=== PATIENT | male | born 1960 | race Caucasian/White ===

== ENCOUNTER 2023-06-20 03:52 | Inpatient (IN) | payer MEDICAID ==
[2023-06-20] VITALS (8 sets, daily range): BP systolic 128–141; BP diastolic 76–90; PULSE 72–82; RESP 16–27; TEMP 98.2; O2SAT 89–99
[~2023-06-20] VITALS: Ht 170.2 cm; Wt 63.5 kg
[~2023-06-20 03:52] MED LIST: ALBU3SOL83 IH; APIX5TAB PO; METH4TAB1 PO
[2023-06-20] MEDS: ALBUTEROL 0.083% 2.5 MG/3 ML NEBU INH ONE ×2 (04:26→06:22)
[2023-06-20] MEDS: IPRATROPIUM 0.02% 0.5 MG/2.5 ML NEBU INH ONE ×2 (04:26→06:21)
[2023-06-20] MEDS: methylPREDNISolone SS 125 MG/2 ML VIAL IVP ONE (05:03)
[2023-06-20] MEDS ORDERED: cefTRIAXone 1,000 MG VIAL ONE (07:03)
[2023-06-20 07:47] LABS: BASOPHILS % (AUTO) 0.2 % (0.0-2.0); EOSINOPHILS % (AUTO) 0.2 % (0.0-4.0); HEMATOCRIT 44.8 % (36-52); HEMOGLOBIN 14.4 g/dL (12.0-18.0); LYMPHOCYTES # (AUTO) 0.5 K/uL (2.0-11.5); LYMPHOCYTES % (AUTO) 6.9 % (20.5-51.1); MEAN CORPUSCULAR HEMOGLOBIN 30 pg (27-31); MEAN CORPUSCULAR HGB CONC 32 g/dL (33-37); MEAN CORPUSCULAR VOLUME 94.2 fL (80-94); MONOCYTES # (AUTO) 0.1 K/uL (0.8-1.0); MONOCYTES % (AUTO) 1.5 % (1.7-9.3); NEUTROPHILS # (AUTO) 6.5 K/uL (1.8-7.7); NEUTROPHILS % (AUTO) 91.2 % (42.2-75.2); PLATELET COUNT (AUTO) 192 K/uL (140-450); RED BLOOD CELL COUNT(AUTO) 4.76 MIL/uL (4.20-6.10); RED CELL DISTRIBUTION WIDTH 14.2 % (11.6-13.7); WHITE BLOOD COUNT (AUTO) 7.2 K/uL (4.8-10.8)
[2023-06-20 07:59] LABS: CALCIUM 9.5 mg/dL (8.5-10.1); CREATININE 0.6 mg/dL (0.6-1.3); POTASSIUM 3.9 mmol/L (3.5-5.1)
[2023-06-20 08:10] LABS: ANION GAP 5.1 (8-16)
[2023-06-20 08:12] LABS: CARBON DIOXIDE 46.8 mmol/L (21-32)
[2023-06-20] MEDS ORDERED: ACETAMINOPHEN 325 MG TAB PO PRN (09:50)
[2023-06-20] MEDS ORDERED: DOCUSATE SODIUM 100 MG GELCAP PO PRN (09:50)
[2023-06-20] MEDS ORDERED: MORPHINE SULFATE 2 MG/ML SYR IVP PRN (09:50)
[2023-06-20] MEDS ORDERED: ONDANSETRON 4 MG/2 ML VIAL IM/IVP PRN (09:50)
[2023-06-20 10:19] LABS: MAGNESIUM 1.5 mg/dL (1.8-2.4); PHOSPHORUS 3.4 mg/dL (2.5-4.9)
[2023-06-20] MEDS: ALBUTEROL SULFATE/IPRATROPIU 3 ML SOL IH SCH ×2 (11:05→15:53)
[2023-06-20] MEDS: NACL 0.9% 1,000 ML IV SCH (11:23)
[2023-06-20] MEDS ORDERED: methylPREDNISolone SS 40 MG in WATER STERILE 1 ML IV SCH (13:00)
[2023-06-20] MEDS: methylPREDNISolone SS 40 MG/ML VIAL IVP SCH (14:51)
[2023-06-20 17:49] LABS: BLOOD GAS PH 7.337 (7.35-7.45)
[2023-06-20 17:50] LABS: BLOOD GAS BASE EXCESS 9.7 mmol/L (-2.0-2.0); BLOOD GAS HCO3 38.5 mmol/L (22-26); BLOOD GAS PCO2 73.6 mmHg (35-45)
[2023-06-20 17:51] LABS: BLOOD GAS O2 SAT% 78.5 % (92.0-98.5)
[2023-06-20] MEDS ORDERED: METF-352 PO (19:41)
[2023-06-20] MEDS ORDERED: PANT40EC PO (19:41)
[2023-06-20] MEDS ORDERED: PRON INH (19:41)
[2023-06-20] MEDS ORDERED: ROFL250T3 PO (19:41)
[2023-06-20] MEDS ORDERED: MELA3TER PO (19:41)
[2023-06-20] MEDS ORDERED: FERR-20 PO (19:41)
[2023-06-20] MEDS ORDERED: ATOR10TA PO (19:41)
[2023-06-20 20:42] LABS: BLOOD GAS PCO2 75.8 mmHg (35-45); BLOOD GAS PH 7.368 (7.35-7.45)
[2023-06-20 20:43] LABS: BLOOD GAS BASE EXCESS 13.7 mmol/L (-2.0-2.0); BLOOD GAS HCO3 42.6 mmol/L (22-26); BLOOD GAS O2 SAT% 87.1 % (92.0-98.5); BLOOD GAS PO2 56.8 mmHg (75-100)
[2023-06-21] VITALS (11 sets, daily range): BP systolic 111–119; BP diastolic 57–79; PULSE 63–86; RESP 16–20; TEMP 97.1–98.4; O2SAT 87–94
[2023-06-21] MEDS ORDERED: MAG SULF 2000 MG/WATER PREMIX 50 ML IV ONE (01:35)
[2023-06-21] MEDS: MAG SULF 2000 MG/WATER PREMIX 50 ML IV ONE (02:17)
[2023-06-21 07:01] LABS: BASOPHILS % (AUTO) 0.1 % (0.0-2.0); HEMATOCRIT 37.9 % (36-52); HEMOGLOBIN 12.5 g/dL (12.0-18.0); LYMPHOCYTES # (AUTO) 1.1 K/uL (2.0-11.5); LYMPHOCYTES % (AUTO) 18.2 % (20.5-51.1); MEAN CORPUSCULAR HEMOGLOBIN 31 pg (27-31); MEAN CORPUSCULAR HGB CONC 33 g/dL (33-37); MONOCYTES # (AUTO) 0.2 K/uL (0.8-1.0); MONOCYTES % (AUTO) 3.8 % (1.7-9.3); NEUTROPHILS # (AUTO) 4.5 K/uL (1.8-7.7); NEUTROPHILS % (AUTO) 77.9 % (42.2-75.2); PLATELET COUNT (AUTO) 170 K/uL (140-450); RED BLOOD CELL COUNT(AUTO) 4.08 MIL/uL (4.20-6.10); WHITE BLOOD COUNT (AUTO) 5.8 K/uL (4.8-10.8)
[2023-06-21 07:53] LABS: ANION GAP 4.1 (8-16); CALCIUM 8.6 mg/dL (8.5-10.1); CREATININE 0.5 mg/dL (0.6-1.3); POTASSIUM 4.2 mmol/L (3.5-5.1)
[2023-06-21 08:02] LABS: CARBON DIOXIDE 43.1 mmol/L (21-32)
[2023-06-21] MEDS: AZITHROMYCIN 500 MG in DEXTROSE 5% 250 ML IV SCH (09:00)
[2023-06-21] MEDS ORDERED: AZIT250T4 PO (09:20)
[2023-06-21] MEDS: HYDROcodone/APAP 7.5/325 MG 1 TAB PO PRN (10:21)
[2023-06-21] MEDS: guaiFENesin DM 200/20 MG-10 ML 10 ML UDC PO PRN (22:22)
[2023-06-22] VITALS (9 sets, daily range): BP systolic 112–124; BP diastolic 67–85; PULSE 60–71; RESP 16–20; TEMP 98.4–98.7; O2SAT 90–95
[2023-06-22] MEDS: ALBUTEROL SULFATE/IPRATROPIU 3 ML SOL IH PRN (06:49)
[2023-06-22 06:57] LABS: BASOPHILS % (AUTO) 0.1 % (0.0-2.0); HEMATOCRIT 36.9 % (36-52); HEMOGLOBIN 11.9 g/dL (12.0-18.0); LYMPHOCYTES # (AUTO) 1.2 K/uL (2.0-11.5); LYMPHOCYTES % (AUTO) 15.6 % (20.5-51.1); MEAN CORPUSCULAR HEMOGLOBIN 30 pg (27-31); MEAN CORPUSCULAR HGB CONC 32 g/dL (33-37); MEAN CORPUSCULAR VOLUME 93.8 fL (80-94); MONOCYTES # (AUTO) 0.5 K/uL (0.8-1.0); MONOCYTES % (AUTO) 5.8 % (1.7-9.3); NEUTROPHILS # (AUTO) 6.2 K/uL (1.8-7.7); NEUTROPHILS % (AUTO) 78.5 % (42.2-75.2); PLATELET COUNT (AUTO) 167 K/uL (140-450); RED BLOOD CELL COUNT(AUTO) 3.93 MIL/uL (4.20-6.10); WHITE BLOOD COUNT (AUTO) 7.9 K/uL (4.8-10.8)
[2023-06-22 07:21] LABS: ANION GAP 6.3 (8-16); CALCIUM 8.5 mg/dL (8.5-10.1); CREATININE 0.5 mg/dL (0.6-1.3); POTASSIUM 4.1 mmol/L (3.5-5.1)
[2023-06-22 07:24] LABS: CARBON DIOXIDE 40.8 mmol/L (21-32)
[2023-06-22] MEDS ORDERED: ALBU3SOL83 IH (10:32)
[2023-06-22] MEDS ORDERED: PRON INH (10:32)
[2023-06-22] MEDS ORDERED: ROFL250T3 PO (10:32)
[2023-06-22] MEDS ORDERED: METH4TAB1 PO (13:14)
== END 2023-06-22 13:05 | DRG 140 ==
LOC: MED 03:52 → MTU 10:00
PROVIDERS: ADMIT Family Medicine; ATTEND Family Medicine
PROC: 5A09357 Assistance with Respiratory Ventilation, Less than 24 Consecutive Hours, Continuous Positive Airway Pressure (ICD-10-PCS; principal; 2023-06-20)
DX: J44.1 Chronic obstructive pulmonary disease with (acute) exacerbation (principal); J96.01 Acute respiratory failure with hypoxia; E87.29 Other acidosis; I10 Essential (primary) hypertension; Z88.8 Allergy status to other drugs, medicaments and biological substances; Z79.84 Long term (current) use of oral hypoglycemic drugs; Z79.899 Other long term (current) drug therapy; Z79.51 Long term (current) use of inhaled steroids
CPT/HCPCS: 36415; 36600; 71045; 80048; 82803; 83735; 83880; 84100; 85025; 87081; 93005; 94640; 94660; 96365; 96375; 99285; J0456; J0696; J2920; J2930; J3475; J7060; J7613; J7644; Q0092